=== PATIENT | female | born 1950 | race Caucasian/White ===

== ENCOUNTER 2016-10-09 19:20 | Emergency (ER) | payer MEDICARE ==
[2016-10-09 19:35] VITALS: TEMP 98; O2SAT 95
[2016-10-09] MEDS ORDERED: CYCLOBENZAPRINE HCL 10 MG TAB PO ONE (19:43)
--- NOTE | 2016-10-09 20:15 | ED.PDOC ---
History of Present Illness - General Chief Complaint: Neck Injury/Pain Stated Complaint: left neck pain from ear down her neck Time Seen by Provider: 10/09/16 19:21 Source: patient, RN notes reviewed, Vital Signs reviewed Exam Limitations: no limitations - History of Present Illness Initial Comments: Patient woke up with morning with L sided neck pain. Seems to come in waves and is worse with movement. O/W no complaints Timing/Duration: intermittent - since this morning Severity: moderate Improving Factors: nothing Worsening Factors: nothing Associated Symptoms: denies symptoms Allergies/Adverse Reactions: Allergies clot dissolver Allergy (Uncoded 02/27/14 09:54) Home Medications: Ambulatory Orders Atenolol [Tenormin] 50 mg PO DAILY 08/25/13 Nitrofurantoin Monohydrate Mac [Macrobid] 100 mg PO BID #20 cap 06/11/15 Antidepressant 07/29/15 Meclizine HCl 25 mg PO Q6H PRN #20 tab 07/29/15 Ondansetron [Zofran Odt] 4 mg PO Q6HR PRN #10 tab 07/29/15 Cyclobenzaprine HCl 5 mg PO Q8HR PRN #15 tab 10/09/16 Review of Systems - Review of Systems Constitutional: States: no symptoms reported EENTM: States: no symptoms reported Respiratory: States: no symptoms reported Cardiology: States: no symptoms reported Gastrointestinal/Abdominal: States: no symptoms reported Musculoskeletal: States: neck pain - feels like muscle spasms on L side of neck Skin: States: no symptoms reported Neurological: States: no symptoms reported All other Systems: No Change from Baseline Past Medical History (General) - Patient Medical History Hx Seizures: No Hx Stroke: No Hx Dementia: No Hx Asthma: No Hx of COPD: No Hx Cardiac Disorders: No Hx Congestive Heart Failure: No Hx Pacemaker: No Hx Hypertension: Yes Hx Thyroid Disease: No Hx Diabetes: No Hx Gastroesophageal Reflux: No Hx Renal Disease: No Hx Cancer: Yes - colon Hx of HIV: No Hx Hepatitis C: No Hx MRSA: No MRSA Source:: Wound Surgical History: other - Vaccination History Hx Tetanus, Diphtheria Vaccination: No Hx Influenza Vaccination: No Hx Pneumococcal Vaccination: No - Social History Hx Tobacco Use: No Hx Chewing Tobacco Use: No Hx Alcohol Use: No Hx Substance Use: No Hx Substance Use Treatment: No Hx Depression: Yes Feels Threatened In Home Enviroment: No Feels Threatened In a Relationship: No Hx Physical Abuse: No Hx Emotional Abuse: No Hx Suspected Abuse: No - Female History Patient : No Family Medical History - Family History Mother Family History: No Known Living Status: Age at (years of age): 69 Hx Family Cancer: Yes - breast Physical Exam - Physical Exam General Appearance: Alert, Comfortable, No apparent distress, Well Developed, Well Groomed, Well Hydrated, Well Nourished Ears, Nose, Throat: hearing grossly normal, normal ENT inspection Neck: limited range of motion - due to pain when turning head to the left, other - Tenderness and muscle spasm on L sternocledomastoid muscle. Respiratory: lungs clear, normal breath sounds, no respiratory distress, no accessory muscle use Cardiovascular/Chest: regular rate, rhythm, no gallop, no JVD, no murmur Extremity: normal range of motion, normal inspection Neurologic: no motor/sensory deficits, alert, normal mood/affect, oriented x 3 Skin Exam: normal color, warm/dry Comments: Vital Signs 10/09/16 10/09/16 19:25 20:05 Temperature 98.0 F Pulse Rate [ 70 69 monitor] Respiratory 16 18 Rate Blood Pressure 175/111 155/96 [Left Arm] O2 Sat by Pulse 95 Oximetry Progress - Progress Progress: 10/09/16 20:16 Patient was given Cyclobenzaprine 10mg PO and ice and reports pain is better. Will d/c home with Rx for Flexeril Departure - Departure Clinical Impression: Neck muscle spasm Time of Disposition: 20:17 Disposition: Discharge to Home or Self Care Condition: Good Departure Forms: ED Discharge - Pt. Copy, Patient Portal Self Enrollment Instructions: DI for Neck Pain Diet: resume usual diet Activity: increase activity as tolerated Referrals: Jama Paez MD [Primary Care Provider] - 1-2 Weeks Prescriptions: Cyclobenzaprine HCl 5 mg PO Q8HR PRN #15 tab PRN Reason: Muscle Spasms Home Medications: Ambulatory Orders Atenolol [Tenormin] 50 mg PO DAILY 08/25/13 Nitrofurantoin Monohydrate Mac [Macrobid] 100 mg PO BID #20 cap 06/11/15 Antidepressant 07/29/15 Meclizine HCl 25 mg PO Q6H PRN #20 tab 07/29/15 Ondansetron [Zofran Odt] 4 mg PO Q6HR PRN #10 tab 07/29/15 Cyclobenzaprine HCl 5 mg PO Q8HR PRN #15 tab 10/09/16
[2016-10-09 20:25] VITALS: BP 160/101
== END 2016-10-09 20:25 | disposition home or self-care (01) ==
LOC: ER 19:20
DX: M62.838 Other muscle spasm (principal); Z85.038 Personal history of other malignant neoplasm of large intestine; Z88.8 Allergy status to other drugs, medicaments and biological substances; Z79.899 Other long term (current) drug therapy

== ENCOUNTER 2016-12-31 11:01 | Emergency (ER) | payer MEDICARE ==
[2016-12-31 11:18] VITALS: TEMP 97.8
[2016-12-31] MEDS ORDERED: amLODIPine BESYLATE 5 MG TAB PO ONE (11:37)
--- NOTE | 2016-12-31 11:41 | ED.PDOC ---
History of Present Illness - General Chief Complaint: Skin/Abrasion/Tear Stated Complaint: skin irritation and urinary complaint Time Seen by Provider: 12/31/16 11:05 Source: patient Exam Limitations: no limitations - History of Present Illness Initial Comments: the patient is 66-year-old female presenting to the emergency room primarily due to a rash on her right anterior tibial region and a rash to her right inguinal fold. The rash to the right tibial region appears to be resolving but has been present for approximately 1-2 weeks. Mild pruritus. The patient has been putting Neosporin on it. It does not appear to be a ringworm. This may be healing atopic dermatitis. The rash to the right inguinal area appears to be essentially a diaper dermatitis. No evidence of itzel psoriasis. No fevers. Once the patient gets talking it is obvious the patient has some significant anxiety and depression issues as well as a laundry list of physical and psychological complaints. She does have some elevated blood pressures here today and does take atenolol but does not check her blood pressures with any frequency. she reports that her systolic blood pressures normally run in the 160s to 170s. They are in the 180s today. The patient does contract for safety. She is not suicidal. she is alert and oriented and in no acute distress. She appears to be neurologically intact. She does have a history of colon cancer in the past. Timing/Duration: 1 week Severity: mild Improving Factors: nothing Worsening Factors: nothing Associated Symptoms: denies symptoms Allergies/Adverse Reactions: Allergies clot dissolver Allergy (Uncoded 12/31/16 11:18) Home Medications: Ambulatory Orders Atenolol [Tenormin] 50 mg PO DAILY 08/25/13 amLODIPine BESYLATE [Norvasc] 5 mg PO DAILY #14 tab 12/31/16 Review of Systems - Review of Systems Constitutional: States: malaise EENTM: States: no symptoms reported Respiratory: States: no symptoms reported Cardiology: States: no symptoms reported Gastrointestinal/Abdominal: States: no symptoms reported Genitourinary: States: no symptoms reported Musculoskeletal: States: see HPI Skin: States: see HPI Neurological: States: anxiety, depressed Endocrine: States: no symptoms reported All other Systems: No Change from Baseline Past Medical History (General) - Patient Medical History Hx Seizures: No Hx Stroke: No Hx Dementia: No Hx Asthma: No Hx of COPD: No Hx Cardiac Disorders: No Hx Congestive Heart Failure: No Hx Pacemaker: No Hx Hypertension: Yes Hx Thyroid Disease: No Hx Diabetes: No Hx Gastroesophageal Reflux: No Hx Renal Disease: No Hx Cancer: Yes - Colon CA Hx of HIV: No Hx Hepatitis C: No Hx MRSA: No MRSA Source:: Wound Surgical History: colectomy, other - Vaccination History Hx Tetanus, Diphtheria Vaccination: No Hx Influenza Vaccination: No Hx Pneumococcal Vaccination: No - Social History Hx Tobacco Use: No Hx Chewing Tobacco Use: No Hx Alcohol Use: No Hx Substance Use: No Hx Substance Use Treatment: No Hx Depression: Yes Hx Physical Abuse: No Hx Emotional Abuse: No Hx Suspected Abuse: No - Female History Patient : No Family Medical History - Family History Mother Family History: No Known Living Status: Age at (years of age): 69 Hx Family Cancer: Yes - breast Physical Exam - Physical Exam General Appearance: Alert, Anxious, No apparent distress Eye Exam: bilateral normal Ears, Nose, Throat: hearing grossly normal, normal ENT inspection, normal pharynx Neck: full range of motion, supple Respiratory: no respiratory distress, no accessory muscle use Cardiovascular/Chest: normal peripheral pulses, no edema, other - regular rate Peripheral Pulses: radial,right: 2+, radial,left: 2+ Rectal Exam: deferred, other - right inguinal rash Extremity: normal range of motion, non-tender, normal inspection, no pedal edema , normal capillary refill 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 Skin is fairly dry. No evidence of psoriasis. 2 inch rash to the right inguinal fold that appears to be consistent with a diaper -type dermatitis. Comments: Vital Signs - 24 hr 12/31/16 11:10 Temperature 97.8 F Pulse Rate [ 74 Left Radial] Respiratory 18 Rate Blood Pressure 181/114 [Left Arm] O2 Sat by Pulse 96 Oximetry Progress - Progress Progress: 12/31/16 11:43 the patient is a 66-year-old female presenting to the emergency room secondary to a rash on her anterior lower leg and in her right inguinal crease. The patient can apply Aquaphor twice daily to both sites for the next week. She should photo document with her phone both rashes on a daily basis to make sure that they are improving. The patient also appears to have some uncontrolled hypertension that is largely asymptomatic at this point. The patient is going to be placed on Norvasc 5 mg daily for the next few weeks, first dose given today. She needs to obtain a good blood pressure cuff and record her blood pressures twice daily when she is relaxed. I do believe that anxiety and social stresses are significantly elevating her blood pressure so we will try not to overcorrect. Additionally she does have several other long- term complaints. She does need to follow up with her primary care doctor later this week to have multiple other long-standing problems addressed. ER warnings were given for acute worsening. Departure - Departure Clinical Impression: Diaper rash, Hypertension, uncontrolled Disposition: Discharge to Home or Self Care Condition: Fair Departure Forms: ED Discharge - Pt. Copy, Patient Portal Self Enrollment Instructions: DI for Intertrigo Diet: regular diet Activity: increase activity as tolerated Referrals: Jama Paez MD [Primary Care Provider] - 1-5 Days Prescriptions: amLODIPine BESYLATE [Norvasc] 5 mg PO DAILY #14 tab Home Medications: Ambulatory Orders Atenolol [Tenormin] 50 mg PO DAILY 08/25/13 amLODIPine BESYLATE [Norvasc] 5 mg PO DAILY #14 tab 12/31/16 Additional Instructions: the patient is a 66-year-old female presenting to the emergency room secondary to a rash on her anterior lower leg and in her right inguinal crease. The patient can apply Aquaphor twice daily to both sites for the next week. She should photo document with her phone both rashes on a daily basis to make sure that they are improving. The patient also appears to have some uncontrolled hypertension that is largely asymptomatic at this point. The patient is going to be placed on Norvasc 5 mg daily for the next few weeks, first dose given today. She needs to obtain a good blood pressure cuff and record her blood pressures twice daily when she is relaxed. I do believe that anxiety and social stresses are significantly elevating her blood pressure so we will try not to overcorrect. Additionally she does have several other long- term complaints. She does need to follow up with her primary care doctor later this week to have multiple other long-standing problems addressed. ER warnings were given for acute worsening.
[2016-12-31 12:15] VITALS: BP 160/101; O2SAT 94
== END 2016-12-31 11:53 | disposition home or self-care (01) ==
LOC: ER 11:01
DX: L22 Diaper dermatitis (principal); I10 Essential (primary) hypertension; Z85.038 Personal history of other malignant neoplasm of large intestine; Z88.8 Allergy status to other drugs, medicaments and biological substances

== ENCOUNTER 2017-08-14 11:14 | Emergency (ER) | payer MEDICARE ==
[2017-08-14 11:42] VITALS: TEMP 98.7
--- NOTE | 2017-08-14 12:00 | ED.PDOC ---
History of Present Illness - General Chief Complaint: General Stated Complaint: right knee pain Time Seen by Provider: 08/14/17 11:43 Source: patient Exam Limitations: no limitations - History of Present Illness Initial Comments: Floresita Bains 67 y/o female stated that she had been having sharp right knee pain aggravated by bending her knee for the last 3 days denies any history of fall,twisting,or trauma.No fever/chills. Timing/Duration: other - 3 days Severity: moderate Improving Factors: rest Worsening Factors: movement Associated Symptoms: denies symptoms Allergies/Adverse Reactions: Allergies clot dissolver Allergy (Uncoded 12/31/16 11:18) Home Medications: Ambulatory Orders Atenolol [Tenormin] 50 mg PO DAILY 08/25/13 amLODIPine BESYLATE [Norvasc] 5 mg PO DAILY #14 tab 12/31/16 Tramadol HCl 50 mg PO Q8HRS PRN #20 tab 08/14/17 Review of Systems - Review of Systems Constitutional: States: no symptoms reported EENTM: States: no symptoms reported Respiratory: States: no symptoms reported Cardiology: States: no symptoms reported Gastrointestinal/Abdominal: States: no symptoms reported Genitourinary: States: no symptoms reported Musculoskeletal: States: see HPI Skin: States: no symptoms reported Neurological: States: no symptoms reported All other Systems: Reviewed and Negative, No Change from Baseline Past Medical History (General) - Patient Medical History Hx Seizures: No Hx Stroke: No Hx Dementia: No Hx Asthma: No Hx of COPD: Yes Hx Cardiac Disorders: No Hx Congestive Heart Failure: No Hx Pacemaker: No Hx Hypertension: No Hx Thyroid Disease: No Hx Diabetes: No Hx Gastroesophageal Reflux: No Hx Renal Disease: No Hx Cancer: Yes - colon Hx of HIV: No Hx Hepatitis C: No Hx MRSA: No MRSA Source:: Wound Surgical History: appendectomy, cancer surgery - colon S/P colostomy, other - c - section - Vaccination History Hx Tetanus, Diphtheria Vaccination: No Hx Influenza Vaccination: No Hx Pneumococcal Vaccination: Yes Immunizations Up to Date: No - Social History Hx Tobacco Use: No Hx Chewing Tobacco Use: No Hx Alcohol Use: No Hx Substance Use: No Hx Substance Use Treatment: No Hx Depression: No Feels Threatened In Home Enviroment: No Feels Threatened In a Relationship: No Hx Physical Abuse: No Hx Emotional Abuse: No Hx Suspected Abuse: No - Activities of Daily Living Hospice Agency (if applicable):: None Grooming Ability: Independent Eating (Feeding) Ability: Independent Toileting Ability: Independent - Female History Patient is a Female of Child Bearing Age (10 -59 yrs old): No Patient : No Family Medical History - Family History Mother Family History: No Known Living Status: Age at (years of age): 69 Hx Family Cancer: Yes - breast Hx Family;Other: GEORGI Disease-dad Physical Exam - Physical Exam General Appearance: Alert, Comfortable, No apparent distress Eye Exam: bilateral normal Ears, Nose, Throat: hearing grossly normal, normal ENT inspection Neck: full range of motion, supple, normal inspection Respiratory: lungs clear, normal breath sounds, no respiratory distress Cardiovascular/Chest: normal peripheral pulses, regular rate, rhythm, no murmur Peripheral Pulses: radial,right: 2+, radial,left: 2+ Gastrointestinal/Abdominal: non tender, soft, no organomegaly, other - patent colostomy Back Exam: no CVA tenderness, no vertebral tenderness Extremity: no pedal edema, no calf tenderness, other - ROM painful on flexion / moderate swelling suprapatellar bursa,varicosities legs right>left Neurologic: alert, oriented x 3 Skin Exam: normal color, warm/dry Progress - Progress Progress: 08/14/17 12:05 Vital Signs - 8 hr 08/14/17 11:39 Temperature 98.7 F Pulse Rate [ 82 apical] Respiratory 20 Rate Blood Pressure 154/108 [rt arm] O2 Sat by Pulse 97 Oximetry - Results/Orders Results/Orders: Laboratory Results - last 24 hr 08/14/17 12:05 Uric Acid 6.9 - EKG/XRAY/CT XRAY: knee - right-suprapatellar effusion;degenerative changes Departure - Departure Clinical Impression: Effusion of knee joint right Knee pain, right Qualifiers: Chronicity: unspecified Qualified Code(s): M25.561 - Pain in right knee Degenerative joint disease of right knee Qualifiers: Osteoarthritis type: other secondary Qualified Code(s): M17.5 - Other unilateral secondary osteoarthritis of knee Time of Disposition: 13:02 Disposition: Discharge to Home or Self Care Departure Forms: ED Discharge - Pt. Copy, Patient Portal Self Enrollment Instructions: Osteoarthritis, Osteoarthritis (DC) Prescriptions: Tramadol HCl 50 mg PO Q8HRS PRN #20 tab PRN Reason: Pain Home Medications: Ambulatory Orders Atenolol [Tenormin] 50 mg PO DAILY 08/25/13 amLODIPine BESYLATE [Norvasc] 5 mg PO DAILY #14 tab 12/31/16 Tramadol HCl 50 mg PO Q8HRS PRN #20 tab 08/14/17 Additional Instructions: Follow up with Orthopedist Dr. Jama for further evaluation and treatment;May also use Aspercreme(over the counter) apply to affected area 3 x a day for pain
--- NOTE | 2017-08-14 12:26 | RAD ---
EXAM DESCRIPTION: Knee,Right 2 or More Views CLINICAL HISTORY: 67 years, Female, pain COMPARISON: None TECHNIQUE: Two views of the right knee FINDINGS: No fracture or dislocation. Bones appear normally mineralized with normal trabecular pattern. Narrowed appearance of medial and lateral compartments on frontal view with spurring of the tibial spines. Lateral view shows normal position of the patella. Mild posterior patellar spurring is seen with narrowing of the patellofemoral joint. Moderate-sized suprapatellar knee joint effusion is present. Normal contour of quadriceps and patellar tendons. No abnormal patellar tilt or subluxation on patellar sunrise view. IMPRESSION: Moderate sized suprapatellar knee joint effusion. Degenerative changes as described. Electronically signed by: Tim Perla MD 08/14/2017 12:24 PM CDT
[2017-08-14 13:04] VITALS: BP 143/94; O2SAT 94
== END 2017-08-14 13:38 | disposition home or self-care (01) ==
LOC: ER 11:14
DX: M25.461 Effusion, right knee (principal); M17.5 Other unilateral secondary osteoarthritis of knee; J44.9 Chronic obstructive pulmonary disease, unspecified; Z85.038 Personal history of other malignant neoplasm of large intestine; Z93.3 Colostomy status

== ENCOUNTER → 2017-08-21 | Outpatient (CLI) | payer MEDICARE ==
--- NOTE | 2017-08-21 12:05 | RAD ---
EXAM DESCRIPTION: Pelvis CLINICAL HISTORY: 67 years Female, PAIN IN RIGHT HIP COMPARISON: Previous x-ray abdomen November 01, 2012 FINDINGS: Moderate amount of fecal material seen in the colon. Calcifications in the pelvis may be phleboliths. Injection granuloma in the right gluteal soft tissues. Degenerative spurring at the lateral acetabular margins. No hip fracture or dislocation. Sacrum appears intact. IMPRESSION: Negative for fracture or dislocation. Electronically signed by: Tim Perla MD 08/21/2017 12:04 PM CDT
== END ==
LOC: RAD 07:22
PROVIDERS: ATTEND Orthopaedic Surgery
DX: M25.551 Pain in right hip (principal)

== ENCOUNTER 2017-10-18 11:39 | Emergency (ER) | payer MEDICARE ==
[2017-10-18 12:05] VITALS: TEMP 100.2
[2017-10-18] MEDS ORDERED: ONDANSETRON INJ 4 MG/2 ML VIAL IV ONE (12:08)
--- NOTE | 2017-10-18 12:11 | ED.PDOC ---
History of Present Illness - General Chief Complaint: Fever Time Seen by Provider: 10/18/17 12:07 Source: patient Exam Limitations: no limitations - History of Present Illness Initial Comments: Patient presents with general body aches for 4 days. She has had a decreased appetite and fever. She started having N/V today. No abdominal pain. Has a history of colon CA s/p colectomy with colostomy bag placement. Samy sick contacts. No other symptoms. Timing/Duration: other - 4 days Severity: moderate Improving Factors: nothing Worsening Factors: nothing Associated Symptoms: malaise, nausea/vomiting Allergies/Adverse Reactions: Allergies clot dissolver Allergy (Uncoded 12/31/16 11:18) Home Medications: Ambulatory Orders Atenolol [Tenormin] 50 mg PO DAILY 08/25/13 Review of Systems - Review of Systems Constitutional: States: see HPI EENTM: States: no symptoms reported Respiratory: States: no symptoms reported Cardiology: States: no symptoms reported Gastrointestinal/Abdominal: States: see HPI Genitourinary: States: no symptoms reported Musculoskeletal: States: no symptoms reported Skin: States: no symptoms reported Neurological: States: no symptoms reported Endocrine: States: no symptoms reported Hematologic/Lymphatic: States: no symptoms reported Past Medical History (General) - Patient Medical History Hx Seizures: No Hx Stroke: No Hx Dementia: No Hx Asthma: No Hx of COPD: Yes Hx Cardiac Disorders: No Hx Congestive Heart Failure: No Hx Pacemaker: No Hx Hypertension: No Hx Thyroid Disease: No Hx Diabetes: No Hx Gastroesophageal Reflux: No Hx Renal Disease: No Hx Cancer: Yes - colon Hx of HIV: No Hx Hepatitis C: No Hx MRSA: No MRSA Source:: Wound - Vaccination History Hx Tetanus, Diphtheria Vaccination: No Hx Influenza Vaccination: No Hx Pneumococcal Vaccination: Yes - Social History Hx Tobacco Use: No Hx Chewing Tobacco Use: No Hx Alcohol Use: No Hx Substance Use: No Hx Substance Use Treatment: No Hx Depression: No Hx Physical Abuse: No Hx Emotional Abuse: No Hx Suspected Abuse: No - Female History Patient : No Family Medical History - Family History Mother Family History: No Known Living Status: Age at (years of age): 69 Hx Family Cancer: Yes - breast Hx Family;Other: GEORGI Disease-dad Physical Exam - Physical Exam General Appearance: Alert Eye Exam: bilateral normal Ears, Nose, Throat: normal ENT inspection Neck: non-tender, full range of motion, supple Respiratory: lungs clear, normal breath sounds, no respiratory distress Cardiovascular/Chest: normal peripheral pulses, regular rate, rhythm, no edema Gastrointestinal/Abdominal: normal bowel sounds, non tender, soft Back Exam: normal inspection, no CVA tenderness, no vertebral tenderness Extremity: normal range of motion, non-tender, normal inspection Neurologic: financial cost analyst II-XII nml as tested, no motor/sensory deficits, alert, normal mood/affect, oriented x 3 Skin Exam: normal color Lymphatic: no adenopathy Progress - Progress Progress: 10/18/17 14:46 UA showed moderate blood. WBC wnl. CXR negative. Patient was give the number for Dr. Woodson, urology, for follow up. Care instructions given. E.R. warnings given. Questions were elicited and answered. The patient voiced understanding and agreement with the plan. Departure - Departure Clinical Impression: Fever in adult, Hematuria Disposition: Discharge to Home or Self Care Condition: Good Departure Forms: ED Discharge - Pt. Copy, Patient Portal Self Enrollment Diet: resume usual diet Activity: increase activity as tolerated Referrals: ANNELIESE WOODSON MD [Consulting Staff] - 1-2 Weeks Home Medications: Ambulatory Orders Atenolol [Tenormin] 50 mg PO DAILY 08/25/13 Additional Instructions: Tylenol for fever control. Increase your oral fluids. Call Dr. Woodson's office today and get an appointment for the next time he is in town. You have blood in your urine and you need to make sure it is from a harmless condition. Return to the E.R. if fever has not resolved in 48 hours or for new or worsening symptoms.
--- NOTE | 2017-10-18 12:29 | RAD ---
EXAM DESCRIPTION: Chest,1 View CLINICAL HISTORY: 67 years Female, fever COMPARISON: Previous study July 29, 2015 TECHNIQUE: AP portable chest. FINDINGS: Heart size is large with prominent central pulmonary vascularity. Port-A-Cath is present with tip in the region of the confluence of the innominate veins and upper superior vena cava. No consolidating infiltrate. No pulmonary mass or worrisome nodule. No pneumothorax or pleural effusion. Bones are unremarkable. Compared to previous study, the vessels are less congested than the heart does not appear as enlarged. IMPRESSION: Prominent heart without congestive failure. Electronically signed by: Tim Perla MD 10/18/2017 12:28 PM CDT
[2017-10-18] MEDS ORDERED: ACETAMINOPHEN 325 MG TAB PO ONE (12:35)
[2017-10-18 14:03] VITALS: O2SAT 96
[2017-10-18 15:11] VITALS: BP 147/91
== END 2017-10-18 15:11 | disposition home or self-care (01) ==
LOC: ER 11:39
DX: R50.9 Fever, unspecified (principal); R31.9 Hematuria, unspecified; R11.2 Nausea with vomiting, unspecified; J44.9 Chronic obstructive pulmonary disease, unspecified; Z85.038 Personal history of other malignant neoplasm of large intestine; Z93.3 Colostomy status; Z88.8 Allergy status to other drugs, medicaments and biological substances
CPT/HCPCS: 36415; 71045; 80053; 81001; 85025; 87502; J2405

== ENCOUNTER 2018-05-14 10:53 | Emergency (ER) | payer MEDICARE ==
[2018-05-14 11:11] VITALS: TEMP 98.3
[2018-05-14] MEDS ORDERED: ATENOLOL 25 MG TAB PO ONE (11:40)
[2018-05-14 12:11] VITALS: O2SAT 96
[2018-05-14] MEDS ORDERED: CIPROFLOXACIN 500 MG TAB PO ONE (12:11)
[2018-05-14] MEDS ORDERED: cefTRIAXone SODIUM 1 GM VIAL IM ONE (12:11)
[2018-05-14] MEDS ORDERED: LIDOCAINE 1% 10 ML VIAL INJ ONE (12:12)
--- NOTE | 2018-05-14 12:14 | ED.PDOC ---
History of Present Illness - General Chief Complaint: Problem Stated Complaint: Pt complains of 1 daty hx of UTI like s/sx Time Seen by Provider: 05/14/18 10:56 Source: patient Exam Limitations: no limitations - History of Present Illness Initial Comments: the patient is a 68-year-old female presenting with symptoms of dysuria frequency and lower abdominal pain for the last 24 hours. Mild symptoms persisting for the last week. No nausea vomiting or diarrhea. No history of pyelonephritis. She does have chronic back pain Timing/Duration: 1 week Severity: moderate Improving Factors: nothing Worsening Factors: nothing Associated Symptoms: denies symptoms Allergies/Adverse Reactions: Allergies clot dissolver Allergy (Uncoded 05/14/18 11:14) Home Medications: Ambulatory Orders Atenolol [Tenormin] 50 mg PO DAILY 08/25/13 Azithromycin [Zithromax Z-Zeferino] 250 mg PO DAILY #1 pack 05/14/18 Ciprofloxacin [Cipro] 500 mg PO BID #14 tab 05/14/18 Nitrofurantoin Monohydrate Mac [Macrobid] 100 mg PO BID #14 capsule 05/14/18 Review of Systems - Review of Systems Constitutional: States: no symptoms reported EENTM: States: no symptoms reported Respiratory: States: no symptoms reported Cardiology: States: no symptoms reported Gastrointestinal/Abdominal: States: abdominal pain Genitourinary: States: dysuria, frequency, pain Musculoskeletal: States: no symptoms reported Skin: States: no symptoms reported Neurological: States: no symptoms reported Endocrine: States: no symptoms reported All other Systems: No Change from Baseline Past Medical History (General) - Patient Medical History Hx Seizures: No Hx Stroke: No Hx Dementia: No Hx Asthma: No Hx of COPD: No Hx Cardiac Disorders: No Hx Congestive Heart Failure: No Hx Pacemaker: No Hx Hypertension: Yes Hx Thyroid Disease: No Hx Diabetes: No Hx Gastroesophageal Reflux: No Hx Renal Disease: No Hx Cancer: Yes - colon Hx of HIV: No Hx Hepatitis C: No Hx MRSA: No MRSA Source:: Wound Surgical History: other - Vaccination History Hx Tetanus, Diphtheria Vaccination: No Hx Influenza Vaccination: No Hx Pneumococcal Vaccination: No Immunizations Up to Date: No - Social History Hx Tobacco Use: No Hx Chewing Tobacco Use: No Hx Alcohol Use: Yes - occasionally Hx Substance Use: No Hx Substance Use Treatment: No Hx Depression: No Hx Physical Abuse: No Hx Emotional Abuse: No Hx Suspected Abuse: No - Female History Patient is a Female of Child Bearing Age (10 -59 yrs old): No Patient : No Family Medical History - Family History Mother Family History: No Known Living Status: Age at (years of age): 69 Hx Family Cancer: Yes - breast Hx Family;Other: GEORGI Disease-dad Physical Exam - Physical Exam General Appearance: Alert, Comfortable, No apparent distress Eye Exam: bilateral normal Ears, Nose, Throat: hearing grossly normal Neck: full range of motion Respiratory: lungs clear, normal breath sounds, no respiratory distress, no accessory muscle use Cardiovascular/Chest: normal peripheral pulses, no edema, other - regular rate Peripheral Pulses: radial,right: 2+, radial,left: 2+ Gastrointestinal/Abdominal: non tender, soft, other - no rebound or peritoneal signs. Moderate obesity. Rectal Exam: deferred Back Exam: no CVA tenderness - none over baseline, no vertebral tenderness Extremity: non-tender, no pedal edema, no calf tenderness, normal capillary refill Neurologic: operations and maintenance technician II-XII nml as tested, alert, normal mood/affect, oriented x 3 Skin Exam: normal color Comments: Vital Signs - 24 hr 05/14/18 05/14/18 11:02 12:01 Temperature 98.3 F Pulse Rate [R 81 74 finger] Respiratory 18 18 Rate Blood Pressure 170/107 179/113 [L arm] O2 Sat by Pulse 98 96 Oximetry Progress - Progress Progress: 05/14/18 12:15 the patient is 68-year-old female presenting with symptoms consistent with cystitis. Urinalysis is consistent as well. The patient is being dosed with Rocephin and ciprofloxacin here. She is going to be placed on ciprofloxacin and Macrobid for the next 7 days. She needs to keep herself well hydrated. She was also given 1 dose of Diflucan here. She needs to follow up with her primary care doctor towards the early part of the coming week for a repeat urinalysis to confirm clearance. the patient does have significant asymptomatic uncontrolled hypertension here. She has not yet taken her daily dose of atenolol. She did receive a dose here. She needs to follow this at home and with her primary care doctor. ER warnings are given for any worsening. 05/14/18 12:17 - Results/Orders Results/Orders: 05/14/18 11:38 Urine Culture Stat Laboratory Results - last 24 hr 05/14/18 11:38 Urine Color Yellow Urine Appearance Cloudy Urine pH 5.5 Ur Specific [place] 1.020 Urine Protein 100 H Urine Glucose (UA) Negative Urine Ketones Negative Urine Blood Moderate H Urine Nitrite Negative Urine Bilirubin Negative Urine Urobilinogen 0.2 Ur Leukocyte Esterase Small H Urine RBC Obscured by wbc's H Urine WBC Tntc H Ur Epithelial Cells Obscured by wbc's Urine Bacteria Obscured by wbc's H Departure - Departure Clinical Impression: Cystitis, Hypertension, uncontrolled Disposition: Discharge to Home or Self Care Condition: Fair Departure Forms: ED Discharge - Pt. Copy, Patient Portal Self Enrollment Instructions: DI for Urinary Tract Infection (UTI) Diet: regular diet Activity: increase activity as tolerated Referrals: Jama Paez MD [Primary Care Provider] - 1-2 Weeks Prescriptions: Azithromycin [Zithromax Z-Zeferino] 250 mg PO DAILY #1 pack Ciprofloxacin [Cipro] 500 mg PO BID #14 tab Nitrofurantoin Monohydrate Mac [Macrobid] 100 mg PO BID #14 capsule Home Medications: Ambulatory Orders Atenolol [Tenormin] 50 mg PO DAILY 08/25/13 Azithromycin [Zithromax Z-Zeferino] 250 mg PO DAILY #1 pack 05/14/18 Ciprofloxacin [Cipro] 500 mg PO BID #14 tab 05/14/18 Nitrofurantoin Monohydrate Mac [Macrobid] 100 mg PO BID #14 capsule 05/14/18 Additional Instructions: the patient is 68-year-old female presenting with symptoms consistent with cystitis. Urinalysis is consistent as well. The patient is being dosed with Rocephin and ciprofloxacin here. She is going to be placed on ciprofloxacin and Macrobid for the next 7 days. She needs to keep herself well hydrated. She was also given 1 dose of Diflucan here. She needs to follow up with her primary care doctor towards the early part of the coming week for a repeat urinalysis to confirm clearance. She did have some asymptomatic hypertension here. She had not taken her daily dose of atenolol but did receive a dose here. She does need to follow this at home and with her primary care doctor. ER warnings are given for any worsening.
[2018-05-14] MEDS ORDERED: FLUCONAZOLE 100 MG TAB PO ONE (12:15)
[2018-05-14 12:45] VITALS: BP 191/107
== END 2018-05-14 12:45 | disposition home or self-care (01) ==
LOC: ER 10:53
DX: N30.90 Cystitis, unspecified without hematuria (principal); I10 Essential (primary) hypertension; Z79.899 Other long term (current) drug therapy; Z85.038 Personal history of other malignant neoplasm of large intestine; Z88.8 Allergy status to other drugs, medicaments and biological substances
CPT/HCPCS: 81001; 87086; J0696

== ENCOUNTER → 2018-07-12 | Outpatient (CLI) | payer MEDICARE ==
--- NOTE | 2018-07-13 12:34 | CT ---
EXAM DESCRIPTION: Abdomen/Pelvis w/wo Contrast CLINICAL HISTORY: HEMATURIA COMPARISON: April 17, 2014 TECHNIQUE: CT of the abdomen and Pelvis was performed with and without IV contrast. This exam was performed according to our departmental dose-optimization program, which includes automated exposure control, adjustment of the mA and/or kV according to patient size and/or use of iterative reconstruction technique. FINDINGS: Pre-IV contrast images show no left or right-sided urinary tract calculus or hydronephrosis. No bladder wall thickening or bladder calcification. Following IV contrast administration, small bilateral renal cysts are noted. No solid renal mass or perinephric fluid. Delayed postcontrast images confirm bilateral renal contrast excretion. No bladder wall irregularity. No lung base abnormality. No pneumoperitoneum, ascites or adenopathy. Mural calcification in the abdominal aorta without aneurysm. Small hiatal hernia. The liver, spleen, pancreas and adrenals are unremarkable. The distal colon is surgically absent with an uncomplicated left lower quadrant colostomy. The uterus and ovaries are unremarkable for patient's age. No concerning bone lesion. IMPRESSION: Small bilateral renal cysts without urinary tract calculus, renal mass, bladder wall thickening or additional abnormality to explain hematuria. Electronically signed by: Ronn Hebert MD 07/13/2018 12:32 PM CDT
--- NOTE | 2018-07-15 16:51 | MAM ---
EXAM DESCRIPTION: 3D Screening BILATERAL : Digital Mammography. CLINICAL HISTORY: 68 years Female SCREENING . No complaints or personal history of breast cancer. Mother with breast cancer. Remote family history of breast cancer. Childbirth. Postmenopausal duration unknown. No HRT. Lifetime risk of developing breast cancer (Tyrer-Cuzick model)(%): 9.1. COMPARISON: Baseline study at this facility. No prior reports. TECHNIQUE: Bilateral CC and MLO projection full-field images, digital tomosynthesis mammographic technique. Bilateral digital 2-D full-field MLO images. CAD not available for tomosynthesis or 2-D images. FINDINGS: The breast parenchymal density pattern is: Scattered areas of fibroglandular density. No skin thickening or nipple retraction. Bilateral axillary lymph nodes. Bilateral solitary microcalcifications, associated with fibroglandular tissues.. Injection port of venous access device partially obscuring the left axilla and left pectoralis major muscles. Group of heterogeneous microcalcifications in the middle third of the right breast near the posterior nipple line. Approximately 4 mm from the nipple. No focal, stellate mass or density, focal asymmetry , and no suspicious microcalcifications left breast IMPRESSION: BI-RADS CATEGORY: 0 - INCOMPLETE- Need additional imaging evaluation. FOLLOW-UP: Recall for additional imaging: Right breast full-field LM tomosynthesis. 2-D digital spot magnification region of interest right breast orthogonal views. Targeted right breast ultrasound if indicated by diagnostic mammographic images.. Written communication concerning the IMPRESSION and Follow-up, will be mailed to the patient and referring health care provider. Electronically signed by: Hubert Lutz MD 07/15/2018 4:49 PM CDT
== END ==
LOC: CT 08:40
PROVIDERS: ATTEND Family Medicine
DX: Z12.31 Encounter for screening mammogram for malignant neoplasm of breast (principal); R31.9 Hematuria, unspecified; N28.1 Cyst of kidney, acquired

== ENCOUNTER → 2018-08-05 | Outpatient (CLI) | payer MEDICARE ==
--- NOTE | 2018-08-05 16:51 | US ---
EXAM DESCRIPTION: 3D Diagnostic, Right (accession [id number]), Breast,Right (accession [id number]): Ultrasound CLINICAL HISTORY: 68 yearsFemaleABNORMAL MAMMO . Heterogeneous calcifications right breast. COMPARISON: Bilateral screening digital breast tomosynthesis 07/12/2018. TECHNIQUE: Right breast LM projection full-field images, digital mammographic tomosynthesis technique. Right breast digital magnification, anterior breast, CC and LM projections. CAD not available. . Transcutaneous scanning of the right breast utilizing sharpe-scale and Doppler modes. Scanning performed by the technician anatomic pathology and Dr. Lutz. FINDINGS: The breast parenchymal density pattern is: Scattered areas of fibroglandular density. No skin thickening or nipple retraction magnification images show diffuse small microcalcifications associated with the dense fibroglandular tissues with more groups seen in the 12:00 region of the right breast approximately 4 cm from the nipple. No stellate mass or density associated with these microcalcifications. Ultrasound: right breast from the 11:00 to the 1:00 position from the nipple to 6 cm posterior. Mixture of fatty tissues and fibroglandular tissues. No dominant solid mass or distinct cyst. No parenchymal edema or large calcifications. No overlying skin changes. Normal vascularity. w IMPRESSION: BI-RADS CATEGORY: 3 - PROBABLY BENIGN. Management: Short interval (6-month) diagnostic right breast mammography with magnification images. 6 months targeted right breast ultrasound.. The FINDINGS and the FOLLOW-UP plan were reviewed in person with the patient after the examination. Written communication explaining the IMPRESSION and FOLLOW-UP will be mailed to the patient and referring care provider. Electronically signed by: Hubert Lutz MD 08/05/2018 4:49 PM CDT
== END ==
LOC: MAMMO 11:00
PROVIDERS: ATTEND Family Medicine
DX: R92.8 Other abnormal and inconclusive findings on diagnostic imaging of breast (principal)
CPT/HCPCS: 76641; 77065; G0279

== ENCOUNTER → 2018-08-29 | Outpatient (CLI) | payer MEDICARE | LOC: YCFC.O 11:33 | PROVIDERS: ATTEND Family Medicine | DX: R31.9 Hematuria, unspecified (principal) ==

== ENCOUNTER 2018-12-06 17:31 | Emergency (ER) | payer MEDICARE ==
[2018-12-06 17:52] VITALS: O2SAT 96
--- NOTE | 2018-12-06 18:00 | ED.PDOC ---
History of Present Illness - General Chief Complaint: Upper Extremity Injury Stated Complaint: S/P FALL Time Seen by Provider: 12/06/18 17:55 - History of Present Illness Initial Comments: this is 68-year-old female who presents to the emergency room with complaints of left wrist and elbow pain. She was brought in via EMS. She was given fentanyl 100 g prior to arrival. She reports that when she arose from a chair she trippe d and fell backwards trying to catch herself with her left upper extremity outstretched behind her. She states that she has never fractured this wrist in the past. She was able to walk after being helped up and denies any pain in her pelvis or hip. She denies any LOC as well. She states that her pain is an 8/10 currently upon presentation to the emergency room. She denies any other injuries. Allergies/Adverse Reactions: Allergies clot dissolver Allergy (Uncoded 05/14/18 11:14) Home Medications: Ambulatory Orders Atenolol [Tenormin] 50 mg PO DAILY 08/25/13 Azithromycin [Zithromax Z-Zeferino] 250 mg PO DAILY #1 pack 05/14/18 Ciprofloxacin [Cipro] 500 mg PO BID #14 tab 05/14/18 Nitrofurantoin Monohydrate Mac [Macrobid] 100 mg PO BID #14 capsule 05/14/18 Acetaminophen W/ Codeine [Tylenol W/ CODEINE #3] 1 ea PO Q6HR #20 12/06/18 Review of Systems - Review of Systems Constitutional: States: no symptoms reported Gastrointestinal/Abdominal: States: no symptoms reported Musculoskeletal: States: see HPI, other - left wrist and elbow pain Skin: States: no symptoms reported Neurological: States: no symptoms reported Past Medical History (General) - Patient Medical History Hx Seizures: No Hx Stroke: No Hx Dementia: No Hx Asthma: No Hx of COPD: No Hx Cardiac Disorders: No Hx Congestive Heart Failure: No Hx Pacemaker: No Hx Hypertension: Yes Hx Thyroid Disease: No Hx Diabetes: No Hx Gastroesophageal Reflux: No Hx Renal Disease: No Hx Cancer: Yes - colon Hx of HIV: No Hx Hepatitis C: No Hx MRSA: No MRSA Source:: Wound Surgical History: colectomy - Vaccination History Hx Tetanus, Diphtheria Vaccination: No Hx Influenza Vaccination: Yes Hx Pneumococcal Vaccination: No - Social History Hx Tobacco Use: No Hx Chewing Tobacco Use: No Hx Alcohol Use: Yes - occasionally Hx Substance Use: No Hx Substance Use Treatment: No Hx Depression: No Hx Physical Abuse: No Hx Emotional Abuse: No Hx Suspected Abuse: No - Female History Patient : No Family Medical History - Family History Mother Family History: No Known Living Status: Age at (years of age): 69 Hx Family Cancer: Yes - breast Hx Family;Other: GEORGI Disease-dad Physical Exam - Physical Exam General Appearance: Alert, No apparent distress, Other - patient is lying on the gurney with left upper extremity propped up and ice overlying the wrist she has an IV in the right ac Eyes, Ears, Nose, Throat Exam: PERRL/EOMI, normal ENT inspection, TMs normal Neck: non-tender, full range of motion, supple Back Exam: normal inspection, no CVA tenderness, no vertebral tenderness Shoulder Exam: normal inspection, non-tender, no evidence of injury Elbow/Forearm Exam: normal ROM, pain Wrist Exam: deformity, ecchymosis, limited ROM, pain, swelling Hand Exam: normal inspection, non-tender Neuro/Tendon: normal sensation, normal motor functions Mental Status: alert, oriented x 3 Skin Exam: normal color Progress - Progress Progress: 12/06/18 18:09 MDM: Patient will have x-ray evaluation performed of wrist and elbow. We will evaluate for potential fracture and treat as appropriate. she is already received pain medication prior to arrival. 12/06/18 19:18 patient is been splinted properly and noted to have normal cap refill. She was taught how to monitor for this and loosen the spint if needed. She will be given follow-up with Dr. jama - Results/Orders Results/Orders: comminuted and displaced fracture noted of the left distal radius. Will prepare to splint. In the left elbow. IMPRESSION: Acute fractures of the distal radius and styloid process of the ulna as described. Three Electronically signed by: Edouard Zambrano MD 12/06/2018 6:45 PM CDT IMPRESSION: No acute fracture or dislocation. Electronically signed by: Edouard Zambrano MD 12/06/2018 6:43 PM CDT Procedures - Splinting Left Wrist Hand-Made Type: orthoglass Splint: sugar-tong Pre-Proc Neuro Vasc Exam: normal Post-Proc Neuro Vasc Exam: normal Departure - Departure Clinical Impression: Closed fracture of left distal radius and ulna Qualifiers: Encounter type: initial encounter Qualified Code(s): S52.502A - Unspecified fracture of the lower end of left radius, initial encounter for closed fracture Time of Disposition: 19:20 Disposition: Discharge to Home or Self Care Condition: Good Departure Forms: ED Discharge - Pt. Copy, Patient Portal Self Enrollment Instructions: DI for Arm Pain Referrals: Jama Paez MD [Primary Care Provider] - 1-2 Weeks Jack Jama MD [Active Staff] - 1-2 Weeks Prescriptions: Acetaminophen W/ Codeine [Tylenol W/ CODEINE #3] 1 ea PO Q6HR #20 Home Medications: Ambulatory Orders Atenolol [Tenormin] 50 mg PO DAILY 08/25/13 Azithromycin [Zithromax Z-Zeferino] 250 mg PO DAILY #1 pack 05/14/18 Ciprofloxacin [Cipro] 500 mg PO BID #14 tab 05/14/18 Nitrofurantoin Monohydrate Mac [Macrobid] 100 mg PO BID #14 capsule 05/14/18 Acetaminophen W/ Codeine [Tylenol W/ CODEINE #3] 1 ea PO Q6HR #20 12/06/18 Additional Instructions: Call for appointment with Dr. Jama as soon as possible. Monitor splint. If too tight may loosen. Call if you have any questions and we will be glad to assist. Sister asked to sit with the patient for a few hours to make sure she is comfortable and safe at home.
--- NOTE | 2018-12-06 18:44 | RAD ---
EXAM DESCRIPTION: Elbow,Left 3 Views CLINICAL HISTORY: pain,swelling COMPARISON: None FINDINGS: Two x-ray views of the left elbow were submitted. There is no acute fracture or dislocation. Bone mineralization is within normal limits. There is no radiopaque foreign body material. IMPRESSION: No acute fracture or dislocation. Electronically signed by: Edouard Zambrano MD 12/06/2018 6:43 PM CDT
--- NOTE | 2018-12-06 18:46 | RAD ---
EXAM DESCRIPTION: Wrist,Left xr 3 Views CLINICAL HISTORY: pain,swelling COMPARISON: None FINDINGS: AP, lateral and oblique views of the left wrist were submitted. There is an acute comminuted compressed fracture of the distal radial metadiaphysis extending into the articulating surface. There is dorsal angulation of the distal fragment. A displaced transverse fracture of the styloid process of the ulna also noted. There is no radiopaque foreign body material. IMPRESSION: Acute fractures of the distal radius and styloid process of the ulna as described. Three Electronically signed by: Edouard Zambrano MD 12/06/2018 6:45 PM CDT
[2018-12-06 20:17] VITALS: BP 162/94; TEMP 98.2
== END 2018-12-06 20:00 | disposition home or self-care (01) ==
LOC: ER 17:31
DX: S52.502A Unspecified fracture of the lower end of left radius, initial encounter for closed fracture (principal); S52.612A Displaced fracture of left ulna styloid process, initial encounter for closed fracture; I10 Essential (primary) hypertension; Z85.038 Personal history of other malignant neoplasm of large intestine; Z79.899 Other long term (current) drug therapy; Z88.8 Allergy status to other drugs, medicaments and biological substances; W01.0XXA Fall on same level from slipping, tripping and stumbling without subsequent striking against object, initial encounter; Y92.9 Unspecified place or not applicable

== ENCOUNTER → 2018-12-12 | Outpatient (CLI) | payer MEDICARE ==
--- NOTE | 2018-12-12 10:39 | RAD ---
EXAM DESCRIPTION: Wrist,Left 3 Views CLINICAL HISTORY: 68 years Female, PAIN IN LEFT WRIST COMPARISON: None available. FINDINGS: Diffuse osteopenia of the visualized bones noted. The bony details are obscured by the overlying cast. Comminuted and mildly displaced distal radius fracture with intra-articular extension consistent with Miller's fracture. The distal radioulnar joint is intact. Mildly displaced left-sided process fractures also noted. The carpal artery appear grossly intact. Soft tissue swelling noted surrounding the wrist joint. IMPRESSION: 1. Comminuted and mildly displaced distal radius fracture with intra-articular extension consistent with Miller's fracture. 2. Mildly displaced ulnar sided process fracture. Electronically signed by: Dexter Rodas MD 12/12/2018 10:37 AM [facility]
== END ==
LOC: RAD 08:00
PROVIDERS: ATTEND Orthopaedic Surgery
DX: S52.502A Unspecified fracture of the lower end of left radius, initial encounter for closed fracture (principal)

== ENCOUNTER → 2018-12-20 | Outpatient (CLI) | payer MEDICARE ==
--- NOTE | 2018-12-20 13:02 | RAD ---
EXAM DESCRIPTION: Wrist,Left 3 Views CLINICAL HISTORY: 68 years, Female, CLOSED FX OF DISTAL END OF RADIUS COMPARISON: December 12, 2018 TECHNIQUE: Three views left wrist FINDINGS: Three views of the wrist demonstrate a mildly displaced ulnar styloid fracture. An encircling fiberglass cast is in place. Intra-articular impacted fracture of the distal radius is present with slight widening of the intra-articular fracture again noted on the oblique view. Significant dorsal angulation on the lateral projection at approximately 25 degrees is unchanged from previous examination eight days earlier. No carpal dislocation is seen. Bony detail is obscured by the encircling fiberglass cast. IMPRESSION: 1. Encircling fiberglass splint with comminuted intra-articular distal radius fracture with approximately 25 degrees of dorsal angulation. 2. Minimally displaced ulnar styloid fracture. Electronically signed by: Andreas Daniel MD 12/20/2018 1:01 PM [facility]
== END ==
LOC: RAD 09:57
PROVIDERS: ATTEND Orthopaedic Surgery
DX: S52.531D Colles' fracture of right radius, subsequent encounter for closed fracture with routine healing (principal); S52.612D Displaced fracture of left ulna styloid process, subsequent encounter for closed fracture with routine healing

== ENCOUNTER → 2018-12-27 | Outpatient (CLI) | payer MEDICARE ==
--- NOTE | 2018-12-27 12:24 | RAD ---
EXAM DESCRIPTION: Wrist,Left 3 Views CLINICAL HISTORY: 68 years Female, COLLES FRACTURE OF LEFT RADIUS COMPARISON: Radiographs of the left wrist dated 12/20/2018. FINDINGS: The visualized bones are well-mineralized. Comminuted fracture of the distal radius with intra-articular extension and ulnar styloid process fracture are again identified. Overlying orthopedic cast limits detailed bony evaluation. IMPRESSION: Unchanged appearance of the fractures of the left radius and ulna compared to prior study. Electronically signed by: Mary Mccracken MD 12/27/2018 12:23 PM [facility]
== END | disposition home or self-care (01) ==
LOC: RAD 09:43
PROVIDERS: ATTEND Orthopaedic Surgery
DX: S52.532D Colles' fracture of left radius, subsequent encounter for closed fracture with routine healing (principal); W18.30XA Fall on same level, unspecified, initial encounter

== ENCOUNTER 2018-12-30 15:09 | Emergency (ER) | payer MEDICARE ==
--- NOTE | 2018-12-30 15:55 | ED.PDOC ---
History of Present Illness - General Chief Complaint: Lower Extremity Injury Stated Complaint: pain in my left leg Time Seen by Provider: 12/30/18 15:44 Source: patient, RN notes reviewed, Vital Signs reviewed Additional Information: this is a 68-year-old female who presents to the ED with complaints of left lower extremity pain for the past week. 2 weeks ago she fell backwards off of her chair that she was painting on and fractured her left wrist. It is now in a cast. She states that the pain of the left lower extremity was likely overshadowed by the pain in her left wrist. In the past week she has noticed the pain more. Worse whenever she puts weight on the extremity and walks. She really does not complain much of knee pain more than achiness throughout the left hip to the knee. She has not been taking any pain medications for this. She does have a remote history of colon cancer. She has a colostomy and has had it for 20 years. She is not on any hormone treatments. She is not sedentary. - History of Present Illness Allergies/Adverse Reactions: Allergies clot dissolver Allergy (Uncoded 05/14/18 11:14) Home Medications: Ambulatory Orders Atenolol [Tenormin] 50 mg PO DAILY 08/25/13 Azithromycin [Zithromax Z-Zeferino] 250 mg PO DAILY #1 pack 05/14/18 Ciprofloxacin [Cipro] 500 mg PO BID #14 tab 05/14/18 Nitrofurantoin Monohydrate Mac [Macrobid] 100 mg PO BID #14 capsule 05/14/18 Acetaminophen W/ Codeine [Tylenol W/ CODEINE #3] 1 ea PO Q6HR #20 12/06/18 Review of Systems - Review of Systems Constitutional: States: no symptoms reported. Denies: chills, fever EENTM: States: no symptoms reported Respiratory: States: no symptoms reported Cardiology: States: no symptoms reported Gastrointestinal/Abdominal: States: no symptoms reported Genitourinary: States: no symptoms reported Musculoskeletal: States: other - pain in the left lower extremity from the hip to the knee. Denies: joint pain, joint swelling Skin: States: no symptoms reported Neurological: States: no symptoms reported Endocrine: States: no symptoms reported Hematologic/Lymphatic: States: no symptoms reported All other Systems: Reviewed and Negative Past Medical History (General) - Patient Medical History Hx Seizures: No Hx Stroke: No Hx Dementia: No Hx Asthma: No Hx of COPD: No Hx Cardiac Disorders: No Hx Congestive Heart Failure: No Hx Pacemaker: No Hx Hypertension: Yes Hx Thyroid Disease: No Hx Diabetes: No Hx Gastroesophageal Reflux: No Hx Renal Disease: No Hx Cancer: Yes - colon Hx of HIV: No Hx Hepatitis C: No Hx MRSA: No MRSA Source:: Wound - Vaccination History Hx Tetanus, Diphtheria Vaccination: No Hx Influenza Vaccination: Yes Hx Pneumococcal Vaccination: No - Social History Hx Tobacco Use: No Hx Chewing Tobacco Use: No Hx Alcohol Use: Yes - occasionally Hx Substance Use: No Hx Substance Use Treatment: No Hx Depression: No Hx Physical Abuse: No Hx Emotional Abuse: No Hx Suspected Abuse: No - Female History Patient : No Family Medical History - Family History Mother Family History: No Known Living Status: Age at (years of age): 69 Hx Family Cancer: Yes - breast Hx Family;Other: GEORGI Disease-dad Physical Exam - Physical Exam General Appearance: Alert, No apparent distress Eyes, Ears, Nose, Throat: PERRL/EOMI Neck: non-tender, full range of motion, supple Cardiovascular/Respiratory: regular rate, rhythm, no M/R/G, normal peripheral pulses, no JVD, normal breath sounds, no respiratory distress Gastrointestinal/Abdominal: non-tender, no organomegaly, other - colostomy in left lower quadrant normal-appearing stoma Back: normal inspection, no CVA tenderness Thigh/Hip: normal inspection, non-tender, no evidence of injury, other - no obvious swelling or deformity presentin the left hip or thigh Leg: other - varicosities are evident in the left lower extremity good movement about the knee. No point tenderness is noted negative Homans and Jose sign Knee: normal inspection, non-tender, normal ROM Ankle: normal inspection, non-tender, no evidence of injury, normal ROM Foot: normal inspection, non-tender Neuro/Tendon: normal sensation, normal motor functions, normal tendon functions Mental Status: alert, oriented x 3 Skin: normal color, warm/dry Comments: Wells criteria 0 Progress - Progress Progress: 12/30/18 16:00 e may not have sono available for a venous duplex scan of the left lower extremity. We are calling them to try to get that performed now. I will go ahead and obtain x-rays of the left lower extremity to make sure that we are not dealing with an occult fracture. I feel that this is low probability. The patient does have a history of colon cancer. 12/30/18 17:09 the patient was given the results of her x-rays and d-dimer. She is really considered low probability for DVT based on well's criteria. I have given her the option of transfer for venous ultrasound or outpatient ultrasound in the a.m. Patient declined transfer. - Results/Orders Results/Orders: Findings: Three views/radiographs Numerous radiopaque round foreign bodies overlie the lateral aspect of the left knee. No acute fracture or dislocation. No significant joint effusion. Mild medial compartment narrowing. Tricompartmental osteophytes. Lateral patellar subluxation and tilt. IMPRESSION: No acute osseous abnormality. Electronically signed by: Jason Robertson MD 12/30/2018 4:47 PM [employer] Workstation: [id number] Findings: Location: Left hip/pelvis No acute fracture or dislocation. Mild left hip osteoarthritis. Soft tissues are unremarkable. Degenerative changes in the lumbar spine and sacroiliac joint. IMPRESSION: No evidence of acute process in the left hip. Electronically signed by: Jason Robertson MD 12/30/2018 4:46 PM [employer] Laboratory Tests 12/30/18 14:20 D-Dimer, Quantitative 0.50 H Departure - Departure Clinical Impression: Leg pain, left Contusion of hip Qualifiers: Encounter type: initial encounter Contusion Qualifiers: Encounter type: initial encounter Contusion area: knee Time of Disposition: 17:18 Disposition: Discharge to Home or Self Care Condition: Good Departure Forms: ED Discharge - Pt. Copy, Patient Portal Self Enrollment Instructions: DI for Leg Pain Referrals: Jama Paez MD [Primary Care Provider] - 1-2 Weeks Home Medications: Ambulatory Orders Atenolol [Tenormin] 50 mg PO DAILY 08/25/13 Azithromycin [Zithromax Z-Zefeirno] 250 mg PO DAILY #1 pack 05/14/18 Ciprofloxacin [Cipro] 500 mg PO BID #14 tab 05/14/18 Nitrofurantoin Monohydrate Mac [Macrobid] 100 mg PO BID #14 capsule 05/14/18 Acetaminophen W/ Codeine [Tylenol W/ CODEINE #3] 1 ea PO Q6HR #20 12/06/18 Additional Instructions: outpatient ultrasound in the a.m. of the left lower extremity. Return to the emergency room if there is any worsening of condition.
--- NOTE | 2018-12-30 16:48 | RAD ---
EXAM DESCRIPTION: Hip,Left 2 Views CLINICAL HISTORY: 68 years Female, hip pain COMPARISON: None. Findings: Location: Left hip/pelvis No acute fracture or dislocation. Mild left hip osteoarthritis. Soft tissues are unremarkable. Degenerative changes in the lumbar spine and sacroiliac joint. IMPRESSION: No evidence of acute process in the left hip. Electronically signed by: Jason Robertson MD 12/30/2018 4:46 PM [facility]
--- NOTE | 2018-12-30 16:49 | RAD ---
EXAM DESCRIPTION: Knee,Left Complete CLINICAL HISTORY: 68 years Female, knee pain COMPARISON: None. Findings: Three views/radiographs Numerous radiopaque round foreign bodies overlie the lateral aspect of the left knee. No acute fracture or dislocation. No significant joint effusion. Mild medial compartment narrowing. Tricompartmental osteophytes. Lateral patellar subluxation and tilt. IMPRESSION: No acute osseous abnormality. Electronically signed by: Jason Robertson MD 12/30/2018 4:47 PM [facility]
[2018-12-30 17:50] VITALS: BP 144/81; TEMP 97.6; O2SAT 97
== END 2018-12-30 17:40 | disposition home or self-care (01) ==
LOC: ER 15:09
DX: S80.02XA Contusion of left knee, initial encounter (principal); S70.02XA Contusion of left hip, initial encounter; I10 Essential (primary) hypertension; Z85.038 Personal history of other malignant neoplasm of large intestine; Z79.899 Other long term (current) drug therapy; Z88.8 Allergy status to other drugs, medicaments and biological substances; W07.XXXA Fall from chair, initial encounter; Y93.89 Activity, other specified; Y92.9 Unspecified place or not applicable

== ENCOUNTER → 2019-01-10 | Outpatient (CLI) | payer MEDICARE ==
--- NOTE | 2019-01-10 13:37 | RAD ---
EXAM DESCRIPTION: Wrist,Left 3 Views CLINICAL HISTORY: CLOSED FX OF DISTAL END OF RADIUS COMPARISON: December 27, 2018 IMPRESSION: 3 views of the left wrist again demonstrate comminuted, intra-articular, impacted fracture of the distal radius with dorsal angulation of the distal fracture fragments similar to previous exam. Fracture margins are slightly more indistinct compared to previous suggesting at least partial interval healing. Detailed evaluation is limited secondary to overlying artifact from fiberglass cast. Mildly displaced ulnar styloid avulsion fracture is again seen. Osseous structures are diffusely osteopenic. Electronically signed by: Gadiel Wagner MD 01/10/2019 1:35 PM [facility]
== END ==
LOC: RAD 09:35
PROVIDERS: ATTEND Orthopaedic Surgery
DX: S52.532D Colles' fracture of left radius, subsequent encounter for closed fracture with routine healing (principal); S52.612D Displaced fracture of left ulna styloid process, subsequent encounter for closed fracture with routine healing

== ENCOUNTER → 2019-12-09 | Outpatient (CLI) | payer MEDICARE | LOC: LAB 11:22 | PROVIDERS: ATTEND Family Medicine | DX: I10 Essential (primary) hypertension (principal) ==